=== PATIENT | female | born 1975 | race African-American/Black ===

== ENCOUNTER 2016-08-11 12:38 | Emergency (ER) | payer MEDICAID, OTHER ==
[~2016-08-11] VITALS: Ht 165.1 cm; Wt 80.0 kg
[2016-08-11] MEDS ORDERED: ONDANSETRON HCL 4MG/2ML VIAL IV STA (15:28)
[2016-08-11] MEDS ORDERED: MECLIZINE 25MG TABLET PO ONE (15:45)
[2016-08-11 16:02] LABS: BASOPHILS % 0.9 % (0.0-2.0); EOSINOPHILS % 0.6 % (0.0-5.0); HEMATOCRIT. 38.5 % (36.0-48.0); HEMOGLOBIN. 12.4 g/dL (12.0-16.0); MEAN CORPUSCULAR HEMOGLOBIN 26.9 pg (28.0-32.0); MEAN CORPUSCULAR HGB CONC 32.3 g/dL (31.0-37.0); MEAN CORPUSCULAR VOLUME 83.5 fL (81.0-99.0); MEAN PLATELET VOLUME 9.7 fl (7.4-10.4); MONOCYTES % 7.7 % (2.0-8.0); NEUTROPHILS % 63.8 % (40.0-76.0); PLATELET 255 x1000/uL (130-400); RED BLOOD CELL COUNT 4.61 mill/uL (4.2-5.4); RED CELL DISTRIBUTION WIDTH 14.7 % (11.6-14.6); WHITE BLOOD COUNT 9.7 x1000/uL (4.5-11.0)
[2016-08-11 16:07] LABS: CHLORIDE 107 mEq/L (98-107); INDEX HEMOLYSI 1 (1-3); INDEX ICTERIC 1 (1-4); INDEX LIPEMIC 1 (1-3)
[2016-08-11 16:15] LABS: ALANINE AMINOTRANSFERASE 18 IU/L (13-61); ANION GAP 13; CALCIUM 9.1 mg/dL (8.5-10.1); CARBON DIOXIDE 27 mEq/L (21-32); UREA NITROGEN BLOOD 12 mg/dL (7-21); eGFR > 60 mL/min (>60)
[2016-08-11 18:18] VITALS: BP 144/85
== END 2016-08-11 18:25 | disposition home or self-care (01) ==
LOC: ER 15:20
DX: R42 Dizziness and giddiness (principal); R11.0 Nausea; I10 Essential (primary) hypertension; Z88.0 Allergy status to penicillin
CPT/HCPCS: 36415; 80053; 82962; 85025; 96374; 99284; J2405; Z7610; J8597